=== PATIENT | female | born 1990 | race Caucasian/White ===

== ENCOUNTER 2018-08-13 10:08 | Emergency (ER) | payer MEDICAID ==
[~2018-08-13] VITALS: Ht 162.6 cm; Wt 72.7 kg
[2018-08-13 10:31] VITALS: Ht 162.6 cm; Wt 72.7 kg
[2018-08-13 11:30] VITALS: BP 108/68
== END 2018-08-13 11:30 | disposition home or self-care (01) ==
LOC: ED 10:08
DX: S02.5XXA Fracture of tooth (traumatic), initial encounter for closed fracture (principal); J45.909 Unspecified asthma, uncomplicated; X58.XXXA Exposure to other specified factors, initial encounter; Y93.89 Activity, other specified; Y92.89 Other specified places as the place of occurrence of the external cause; Y99.8 Other external cause status
CPT/HCPCS: J2001

== ENCOUNTER 2018-08-14 13:49 | Emergency (ER) | payer MEDICAID | END 2018-08-14 14:35 | disposition left against medical advice (07) | LOC: ED 13:49 | DX: Z53.21 Procedure and treatment not carried out due to patient leaving prior to being seen by health care provider (principal) ==

== ENCOUNTER 2018-08-14 17:12 | Emergency (ER) | payer MEDICAID ==
[~2018-08-14] VITALS: Ht 162.6 cm; Wt 52.6 kg
[2018-08-14 17:20] VITALS: BP 166/69; Ht 162.6 cm; Wt 52.6 kg
== END 2018-08-14 18:45 | disposition left against medical advice (07) ==
LOC: ED 17:12
DX: K08.89 Other specified disorders of teeth and supporting structures (principal); K04.7 Periapical abscess without sinus; J45.909 Unspecified asthma, uncomplicated